=== PATIENT | male | born 1970 | race Caucasian/White ===

== ENCOUNTER 2016-04-26 23:59 | Emergency (ER) | payer SELFPAY ==
[~2016-04-26 23:59] MED LIST: DARVOCET-N 1001 TAB PO; FLEXERIL10 MG PO; NORCO 5/325 TAB1 TAB PO; PREDNISONE1 MG PO; VICODIN 5/500 T1 TAB PO; ZANTAC150 M1 PO
== END 2016-04-27 01:57 | disposition home or self-care (01) ==
LOC: CED 23:59
DX: S46.811A Strain of other muscles, fascia and tendons at shoulder and upper arm level, right arm, initial encounter (principal); I10 Essential (primary) hypertension; Z88.6 Allergy status to analgesic agent; X58.XXXA Exposure to other specified factors, initial encounter; Y93.89 Activity, other specified; Y92.69 Other specified industrial and construction area as the place of occurrence of the external cause; Y99.0 Civilian activity done for income or pay
CPT/HCPCS: 99283

== ENCOUNTER 2016-09-11 09:48 | Emergency (ER) | payer SELFPAY ==
[~2016-09-11] VITALS: Ht 170.2 cm; Wt 89.3 kg
--- NOTE | ~2016-09-11 | CR107 ---
[facility] A Service of [facility] & [facility] RADIOLOGY TEXT RESULTS PATIENT: TICO PANIAGUA LOCATION: [facility] : 70 UNIT #: [id number] AGE: [address]: Ankita Louis SEX: M ORDER DR: [id number] [facility] [address] [place], [place] [address] [id number] E MR#: [id number] Acc #: [id number] NAME: TICO PANIAGUA. : 1970 SEX: M STUDY DATE/TIME: 09/11/2016 UNIT: [facility] ROOM: STUDY DESCRIPTION: CR Femur 2 Views Rt Attending Physician: Ankita Louis P.A.-C. Ordering Physician: Ankita Louis P.A.-C. Primary Care Physician: Primary Care Physician No MEDICAL IMAGING REPORT This report is preliminary unless electronic signature is present EXAM Right femur 2 views 09/11/2016 10:09 hours HISTORY Patient fell on 09/05/2016. Right hip pain radiating to knee since fall. COMPARISON Knee films 11/17/2016. No prior femur film. FINDINGS AP view of the right hip and AP and lateral views of the right femur demonstrate no fracture or underlying bone lesion. 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 IMPRESSION No hip or femur fracture seen. 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 Dictated by... Therese Lacey M.D. THIS IS AN ELECTRONICALLY VERIFIED REPORT Therese Lacey M.D. at 09/12/2016 9:11 AM TRISTAM/lucas TD: 09/11/2016 14:36 JOB #: [id number] MEDICAL IMAGING REPORT Page 1 of 1 COPY
--- NOTE | ~2016-09-11 | CR206 ---
[facility] A Service of [facility] & [facility] RADIOLOGY TEXT RESULTS PATIENT: TICO PANIAGUA LOCATION: [facility] : 70 UNIT #: [id number] AGE: [address]: Ankita Louis SEX: M ORDER DR: [id number] [facility] [address] [place], [place] [address] [id number] E MR#: [id number] Acc #: [id number] NAME: TICO PANIAGUA. : 1970 SEX: M STUDY DATE/TIME: 09/11/2016 UNIT: [facility] ROOM: STUDY DESCRIPTION: CR Pelvis 1 or 2 Views Attending Physician: Ankita Louis P.A.-C. Ordering Physician: Ankita Louis P.A.-C. Primary Care Physician: Primary Care Physician No MEDICAL IMAGING REPORT This report is preliminary unless electronic signature is present EXAM Pelvis one-view 09/11/2016 10:09 hours HISTORY Patient fell 6 days ago with right hip pain radiating to knee, pelvic pain. COMPARISON Sacrum and coccyx view 10/29/2007 FINDINGS Single AP view of the pelvis demonstrates overall normal bone density. There is mild degenerative spurring at the sacroiliac joints and hip joints. No fracture seen. IMPRESSION Mild degenerative spurring at the sacroiliac joints and hip joints. No fracture seen. Dictated by... Therese Lacey M.D. THIS IS AN ELECTRONICALLY VERIFIED REPORT Therese Lacey M.D. at 09/12/2016 9:11 AM EDILSON/lucas TD: 09/11/2016 14:34 JOB #: [id number] MEDICAL IMAGING REPORT Page 1 of 1 COPY
== END 2016-09-11 10:54 | disposition home or self-care (01) ==
LOC: CFTX 09:48 → CED 09:48 → CFTX 10:37
DX: S70.01XA Contusion of right hip, initial encounter (principal); Z88.6 Allergy status to analgesic agent; W18.39XA Other fall on same level, initial encounter; Y92.69 Other specified industrial and construction area as the place of occurrence of the external cause; Y99.0 Civilian activity done for income or pay
CPT/HCPCS: 72170; 73552; 99283